=== PATIENT | male | born 1980 | race Caucasian/White ===

== ENCOUNTER 2016-12-20 16:06 | Emergency (ER) | payer SELFPAY ==
[~2016-12-20] VITALS: Ht 180.3 cm; Wt 95.2 kg
[~2016-12-20 16:06] MED LIST: TRAM50 PO
[2016-12-20 16:17] VITALS: BP 171/100; PULSE 118; RESP 16; TEMP 98.4; O2SAT 98
--- NOTE | 2016-12-20 16:43 | PD ---
HPI Chief Complaint: right knee pain Time Seen by Provider: 16:26 Travel History International Travel<30 days: No Contact w/Intl Traveler<30days: No Traveled to known affect area: No History of Present Illness HPI 36yo M with questionable history of gout presents to the ED with c/o right knee pain since yesterday. He was laying in bed and thought he heard something pop in his right knee and has been having pain there since. States he had similar right ankle swelling and pain and his PMD said he had elevated uric acid so he may have gout. Denies any fever, chest pain, sob, n/v, abdominal pain, focal weakness or numbness. PFSH Past Medical History High Cholesterol: Yes Diminished Hearing: No Gout: Yes Hypertension: Yes (STOPPED TAKING HIS MEDS "AWHILE AGO") Musculoskeletal: Yes (BACK PAIN) Tetanus Vaccination: Unknown Influenza Vaccination: No ?: Not Social History Alcohol Use: Yes (occ) Tobacco Use: Yes (when drinking) Substance Use: Yes (MARIJUANA) Allergies-Medications (Allergen,Severity, Reaction): Coded Allergies: No Known Allergies (Unverified , 12/20/16) Reported Meds & Prescriptions Reported Meds & Active Scripts Active Ketorolac (Ketorolac Tromethamine) 10 Mg Tab 10 Mg PO Q8HR PRN Colchicine 0.6 Mg Cap 0.6 Mg PO BID Review of Systems Except as stated in HPI: all other systems reviewed are Neg Physical Exam Narrative GENERAL: 36yo M in moderate distress. SKIN: Focused skin assessment warm/dry. HEAD: Atraumatic. Normocephalic. CARDIOVASCULAR: Regular rate and rhythm. No murmur appreciated. RESPIRATORY: No accessory muscle use. Clear to auscultation. Breath sounds equal bilaterally. GASTROINTESTINAL: Abdomen soft, non-tender, nondistended. MUSCULOSKELETAL: Right knee: +Joint effusion. No erythema. Not hot to touch. Unable to fully extend. Sensation intact. Distal pulses intact. NEUROLOGICAL: Awake and alert. No obvious cranial nerve deficits. Motor grossly within normal limits. Normal speech. PSYCHIATRIC: Appropriate mood and affect; insight and judgment normal. Data Data Last Documented VS Vital Signs Date Time Temp Pulse Resp B/P Pulse Ox O2 Delivery O2 Flow Rate FiO2 12/20/16 16:17 98.4 118 16 171/100 98 Orders Knee, Ltd (1 Or 2vws) (12/20/16 ) Ketorolac Inj (Toradol Inj) (12/20/16 16:45) Colchicine (Colchicine) (12/20/16 16:45) Complete Blood Count With Diff (12/20/16 16:37) Basic Metabolic Panel (Bmp) (12/20/16 16:37) Ketorolac Inj (Toradol Inj) (12/20/16 16:45) Lidocaine 1% Inj (50 Ml) (Xylocaine 1% I (12/20/16 18:00) Synovial Fl Cell Count + Diff (12/20/16 18:42) Synovial Fluid Crystals (12/20/16 18:42) Synovial Fluid Glucose (12/20/16 18:42) Synovial Fluid Total Protein (12/20/16 18:42) Labs Laboratory Tests Test 12/20/16 12/20/16 17:06 18:45 White Blood Count 12.2 TH/MM3 Red Blood Count 4.48 MIL/MM3 Hemoglobin 14.6 GM/DL Hematocrit 43.1 % Mean Corpuscular Volume 96.2 FL Mean Corpuscular Hemoglobin 32.5 PG Mean Corpuscular Hemoglobin 33.8 % Concent Red Cell Distribution Width 12.1 % Platelet Count 279 TH/MM3 Mean Platelet Volume 7.9 FL Neutrophils (%) (Auto) 74.0 % Lymphocytes (%) (Auto) 14.0 % Monocytes (%) (Auto) 11.2 % Eosinophils (%) (Auto) 0.3 % Basophils (%) (Auto) 0.5 % Neutrophils # (Auto) 9.0 TH/MM3 Lymphocytes # (Auto) 1.7 TH/MM3 Monocytes # (Auto) 1.4 TH/MM3 Eosinophils # (Auto) 0.0 TH/MM3 Basophils # (Auto) 0.1 TH/MM3 CBC Comment DIFF FINAL Differential Comment Sodium Level 136 MEQ/L Potassium Level 3.5 MEQ/L Chloride Level 99 MEQ/L Carbon Dioxide Level 26.4 MEQ/L Anion Gap 11 MEQ/L Blood Urea Nitrogen 10 MG/DL Creatinine 1.10 MG/DL Estimat Glomerular Filtration 76 ML/MIN Rate Random Glucose 106 MG/DL Calcium Level 9.7 MG/DL Synovial Fluid Color YELLOW Synovial Fluid Appearance CLOUDY Synovial Fluid WBC 26335 /MM3 Synovial Fluid RBC 820 /MM3 Synovial Fluid Neutrophils 99 % Synovial Fluid Lymphocytes 1 % Synovial Fluid Crystals NONE MDM Medical Decision Making Medical Screen Exam Complete: Yes Emergency Medical Condition: Yes Differential Diagnosis Gout vs. septic joint vs. meniscal injury vs. bursitis Narrative Course 36yo M with sudden onset right knee pain and swelling. Pt denies any trauma but said he thinks he heard a pop. Unable to fully extend it. Had questionable history of gout in right ankle before but never had arthrocentesis. Labs reviewed, mild leukocytosis at 12.2. BMP unremarkable. Xray of right knee unremarkable. Pt given toradol, colchicine. Pt reevaluated at bedside and states pain has improved but still feels a lot of pressure and cant fully extend. Arthrocentesis was performed and 35cc of straw color fluid was aspirated and sent. There was a small amount of blood at the end that was mixed in it. Arthrocentesis was completed and synovial fluid was sent. Sign out to next team Dr. Rahman to follow up synovial fluid and disposition depending on results. Procedures Procedure Narrative Arthrocentesis of right knee: Consent was obtained from patient. Betadine was used to clean right knee. 3cc of 1% lidocaine was used to anesthesized right knee before insertion of 18 gauge needle. Straw colored synovial fluid was aspirated and total of 35cc of fluid was aspirated. There was a small amount of blood mixed in the fluid at the end. Pressure applied with sterile gauze after and covered with bandaid. Pt tolerated procedure well. Diagnosis Primary Impression: Right knee pain Qualified Code: M25.561 - Acute pain of right knee Scripts Ketorolac 10 Mg Tab10 Mg PO Q8HR PRN (PAIN) #18 TAB Ref 0 Prov:Parveen Rahman MD 12/20/16 Colchicine 0.6 Mg Cap0.6 Mg PO BID #14 CAP Ref 0 Prov:Parveen Rahman MD 12/20/16 Renée Sena DO Dec 20, 2016 16:43
[2016-12-20] MEDS ORDERED: COLCHICINE 0.6 MG TAB PO ONE (16:45)
[2016-12-20] MEDS ORDERED: KETOROLAC TROMETHAMINE 60 MG/2 ML (IM) VIAL IM ONE (16:45)
[2016-12-20] MEDS ORDERED: KETOROLAC TROMETHAMINE 30 MG/ML (IVP) VIAL IV PUSH ONE (16:45)
[2016-12-20 17:17] LABS: BASOPHIL # 0.1 TH/MM3 (0-0.2); BASOPHIL % 0.5 % (0.0-2.0); EOSINOPHIL % 0.3 % (0.0-4.0); HEMATOCRIT 43.1 % (39.0-51.0); HEMO FLAGS DIFF FINAL; LYMPHOCYTE # 1.7 TH/MM3 (1.0-4.8); MEAN CELL VOLUME 96.2 FL (80.0-100.0); MEAN CORPUSCULAR HEMOGLOBIN 32.5 PG (27.0-34.0); MEAN CORPUSCULAR HGB CONC 33.8 % (32.0-36.0); MONO % 11.2 % (0.0-8.0); PLATELET COUNT 279 TH/MM3 (150-450); RED BLOOD COUNT 4.48 MIL/MM3 (4.50-5.90); RED CELL DISTRIBUTION WIDTH 12.1 % (11.6-17.2); WHITE BLOOD COUNT 12.2 TH/MM3 (4.0-11.0)
[2016-12-20 17:26] LABS: POTASSIUM 3.5 MEQ/L (3.5-5.1)
[2016-12-20 17:30] LABS: BICARBONATE 26.4 MEQ/L (21.0-32.0)
--- NOTE | 2016-12-20 17:42 | RADRPT ---
EXAM DATE/TIME: 12/20/2016 17:19 [facility] COMPARISON: No previous studies available for comparison. INDICATIONS : Right knee pain. No known injury. MEDICAL HISTORY : None. SURGICAL HISTORY : None. ENCOUNTER: Initial ACUITY: 2 days PAIN SCORE: 9/10 LOCATION: Right Knee. FINDINGS: Two view examination of the right knee demonstrates no evidence of fracture or dislocation. Bony min eralization is normal. The suprapatellar soft tissues have a normal configuration. CONCLUSION: 1. Unremarkable right knee radiographs. Didier Myles MD on December 20, 2016 at 17:39 Board Certified Radiologist. This report was verified electronically.
[2016-12-20] MEDS ORDERED: LIDOCAINE HCL 1% 50 ML VIAL INFIL ONE (18:00)
--- NOTE | 2016-12-20 19:38 | PD ---
Physical Exam Date Seen by Provider: Dec 20, 2016 Narrative GENERAL: SKIN: Warm and dry. HEAD: Atraumatic. Normocephalic. EYES: Pupils equal and round. No scleral icterus. No injection or drainage. ENT: No nasal bleeding or discharge. Mucous membranes pink and moist. NECK: Trachea midline. No JVD. CARDIOVASCULAR: Regular rate and rhythm. RESPIRATORY: No accessory muscle use. Clear to auscultation. Breath sounds equal bilaterally. GASTROINTESTINAL: Abdomen soft, non-tender, nondistended. Hepatic and splenic margins not palpable. MUSCULOSKELETAL: Extremities without clubbing, cyanosis, or edema. No obvious deformities. right knee rom intact and doing well with weight bearing after procedure by dr zelaya. NEUROLOGICAL: Awake and alert. No obvious cranial nerve deficits. Motor grossly within normal limits. Five out of 5 muscle strength in the arms and legs. Normal speech. PSYCHIATRIC: Appropriate mood and affect; insight and judgment normal. Data Data Last Documented VS Vital Signs Date Time Temp Pulse Resp B/P Pulse Ox O2 Delivery O2 Flow Rate FiO2 12/20/16 16:17 98.4 118 16 171/100 98 Orders Knee, Ltd (1 Or 2vws) (12/20/16 ) Ketorolac Inj (Toradol Inj) (12/20/16 16:45) Colchicine (Colchicine) (12/20/16 16:45) Complete Blood Count With Diff (12/20/16 16:37) Basic Metabolic Panel (Bmp) (12/20/16 16:37) Ketorolac Inj (Toradol Inj) (12/20/16 16:45) Lidocaine 1% Inj (50 Ml) (Xylocaine 1% I (12/20/16 18:00) Synovial Fl Cell Count + Diff (12/20/16 18:42) Synovial Fluid Crystals (12/20/16 18:42) Synovial Fluid Glucose (12/20/16 18:42) Synovial Fluid Total Protein (12/20/16 18:42) Labs Laboratory Tests Test 12/20/16 17:06 White Blood Count 12.2 TH/MM3 Red Blood Count 4.48 MIL/MM3 Hemoglobin 14.6 GM/DL Hematocrit 43.1 % Mean Corpuscular Volume 96.2 FL Mean Corpuscular Hemoglobin 32.5 PG Mean Corpuscular Hemoglobin 33.8 % Concent Red Cell Distribution Width 12.1 % Platelet Count 279 TH/MM3 Mean Platelet Volume 7.9 FL Neutrophils (%) (Auto) 74.0 % Lymphocytes (%) (Auto) 14.0 % Monocytes (%) (Auto) 11.2 % Eosinophils (%) (Auto) 0.3 % Basophils (%) (Auto) 0.5 % Neutrophils # (Auto) 9.0 TH/MM3 Lymphocytes # (Auto) 1.7 TH/MM3 Monocytes # (Auto) 1.4 TH/MM3 Eosinophils # (Auto) 0.0 TH/MM3 Basophils # (Auto) 0.1 TH/MM3 CBC Comment DIFF FINAL Differential Comment Sodium Level 136 MEQ/L Potassium Level 3.5 MEQ/L Chloride Level 99 MEQ/L Carbon Dioxide Level 26.4 MEQ/L Anion Gap 11 MEQ/L Blood Urea Nitrogen 10 MG/DL Creatinine 1.10 MG/DL Estimat Glomerular Filtration 76 ML/MIN Rate Random Glucose 106 MG/DL Calcium Level 9.7 MG/DL [facility] Medical Record Reviewed: Yes Supervised Visit with OSORIO: No Narrative Course after eval of synovial fluid no elevated white count no suggestion of septic knee, more likely gouty arthritis. 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
[2016-12-20] MEDS ORDERED: KETO10 PO (19:40)
[2016-12-20] MEDS ORDERED: COLC1CAP3 PO (19:40)
[2016-12-20 19:47] LABS: WBC, SYNOVIAL FLUID 13664 /MM3 (0-200)
[2016-12-23 23:53] LABS: TOTAL PROTEIN, SYNOVIAL FLUID 5.2 g/dL (1.0-3.0)
== END 2016-12-20 20:04 | disposition home or self-care (01) ==
LOC: PHEFT 16:06
DX: M25.561 Pain in right knee (principal); F12.90 Cannabis use, unspecified, uncomplicated
CPT/HCPCS: 20610; 73560; 80048; 82945; 84157; 85025; 89051; 89060; 96374; 99284; J1885

== ENCOUNTER 2017-05-24 11:27 | Emergency (ER) | payer SELFPAY ==
[~2017-05-24] VITALS: Ht 180.3 cm; Wt 93.2 kg
[~2017-05-24 11:27] MED LIST changes: +COLC1CAP3 PO; +KETO10 PO; -TRAM50 PO
[2017-05-24 11:36] VITALS: BP 196/100; PULSE 101; RESP 18; TEMP 98.1; O2SAT 100
[2017-05-24] MEDS ORDERED: ACETAMINOPHEN/HYDROcodone 325 MG/7.5 MG TAB PO ONE (12:00)
[2017-05-24] MEDS ORDERED: KETOROLAC TROMETHAMINE 60 MG/2 ML (IM) VIAL IM ONE (12:00)
--- NOTE | 2017-05-24 12:31 | RADRPT ---
EXAM DATE/TIME: 05/24/2017 11:56 [facility] COMPARISON: No previous studies available for comparison. INDICATIONS : Left knee pain, no known injury MEDICAL HISTORY : gout SURGICAL HISTORY : None. ENCOUNTER: Initial ACUITY: 2 days PAIN SCORE: 8/10 LOCATION: Left knee FINDINGS: There is a large left-sided knee joint effusion. No acute bony abnormalities. Normal alignment. CONCLUSION: 1. Large left sided knee joint effusion. Ascencion Johns MD on May 24, 2017 at 12:21 Board Certified Radiologist. This report was verified electronically.
[2017-05-24] MEDS ORDERED: KETO10 PO (13:13)
[2017-05-24] MEDS ORDERED: COLC1CAP3 PO (13:13)
--- NOTE | 2017-05-24 13:14 | PD ---
HPI Chief Complaint: Musculoskeletal Complaint Time Seen by Provider: 11:42 Travel History International Travel<30 days: No Contact w/Intl Traveler<30days: No Traveled to known affect area: No History of Present Illness HPI 36-year-old male with 1 day of left knee pain. Associated symptoms include swelling. No trauma. Similar episodes occurred in the right knee previously as well as the toes and ankles. He believes he has a history of gout and has Been Using at Home Remedies with Good Effect. No Fever. Pain Is Constant Severe and Worse with Range Of Motion. PFSH Past Medical History Cardiovascular Problems: Yes (HTN) High Cholesterol: Yes Diminished Hearing: No Gout: Yes Hypertension: Yes (CURRENTLY NOT ON MEDS) Musculoskeletal: Yes (BACK PAIN) Immunizations Current: Yes Past Surgical History Surgical History: No Previous Surgery Social History Alcohol Use: Yes (occ) Tobacco Use: No Substance Use: No Allergies-Medications (Allergen,Severity, Reaction): Coded Allergies: No Known Allergies (Unverified Adverse Reaction, Unknown, 05/24/17) Reported Meds & Prescriptions Reported Meds & Active Scripts Active Colchicine 0.6 Mg Cap 0.6 Mg PO BID Ketorolac (Ketorolac Tromethamine) 10 Mg Tab 10 Mg PO Q8HR PRN Review of Systems Except as stated in HPI: all other systems reviewed are Neg General / Constitutional: No: Fever Physical Exam Narrative GENERAL: Well-nourished well-developed 36-year-old male pleasant SKIN: Warm and dry. HEAD: Normocephalic. EYES: No scleral icterus. No injection or drainage. NECK: Supple, trachea midline. No JVD or lymphadenopathy. CARDIOVASCULAR: Regular rate and rhythm without murmurs, gallops, or rubs. RESPIRATORY: Breath sounds equal bilaterally. No accessory muscle use. GASTROINTESTINAL: Abdomen soft, non-tender, nondistended. MUSCULOSKELETAL: No cyanosis, or edema. Minimal swelling about the left knee and suprapatellar distribution. Range of motion is intact though somewhat limited due to pain BACK: Nontender without obvious deformity. No CVA tenderness. Data Data Last Documented VS Vital Signs Date Time Temp Pulse Resp B/P (MAP) Pulse Ox O2 Delivery O2 Flow Rate FiO2 05/24/17 11:36 98.1 101 18 196/100 (132) 100 well-nourished well-developed 36-year-old male Orders Orders Knee, Complete (4vws) (05/24/17 ) Ketorolac Inj (Toradol Inj) (05/24/17 12:00) Acetamin-Hydrocod 325-7.5 Mg ([place] 7.5 (05/24/17 12:00) Ed Discharge Order (05/24/17 13:14) Mandatory Outpatient Referral (05/24/17 13:14) MDM Medical Decision Making Medical Screen Exam Complete: Yes Emergency Medical Condition: Yes Medical Record Reviewed: Yes Differential Diagnosis Septic arthritis, gout, pseudoarthrosis Narrative Course Abnormalities aside from the effusion Patient reports that the colchicine and Toradol were previously beneficial The absence of crystals on prior joint aspiration is unusual for diagnosis of gout We'll provide follow-up with orthopedics as mandatory referral as well these in a clinic I believe arthritis is less likely as the patient has had numerous similar episodes involving multiple other joints which have all resolved spontaneously Diagnosis Primary Impression: Knee effusion, right Referrals: Mir Lopez MD [facility] Patient Assistance Program Med/Other Pt SpecificInfo: Prescription(s) given Scripts Colchicine (Colchicine) 0.6 Mg Cap 0.6 MG PO BID for Gout, #14 CAP 0 Refills Prov: Guerrero Judd MD 05/24/17 Ketorolac (Ketorolac) 10 Mg Tab 10 MG PO Q8HR Y for PAIN, #18 TAB 0 Refills Prov: Guerrero Judd MD 05/24/17 Disposition: 01 DISCHARGE HOME Condition: Stable Guerrero Judd MD May 24, 2017 13:14
== END 2017-05-24 13:31 | disposition home or self-care (01) ==
LOC: PHED 11:27
DX: M25.461 Effusion, right knee (principal); I10 Essential (primary) hypertension; E78.00 Pure hypercholesterolemia, unspecified; M10.9 Gout, unspecified
CPT/HCPCS: 73564; 96372; 99284; J1885